=== PATIENT | female | born 1975 | race Hispanic/Latino ===

== ENCOUNTER 2018-10-07 16:06 | Emergency (ER) | payer OTHER ==
--- NOTE | 2018-10-07 16:46 | Emergency Department Report ---
Blank Doc - Documentation Documentation: 43 y/o female s/o fall in [place] and injured right ankle requiring surgi awilda fixation in June 24 and needs ortho referal, needs medication refills, also right ear pain for the last few days
[2018-10-07] MEDS ORDERED: IBUPROFEN PO ONE (20:20)
--- NOTE | 2018-10-07 20:47 | Emergency Department Report ---
ED General Adult HPI - General Chief complaint: Extremity Injury, Lower Stated complaint: LEGS/ANKLE/EAR ACHE Time Seen by Provider: 10/07/18 16:42 Source: patient Mode of arrival: Ambulatory Limitations: No Limitations - History of Present Illness Initial comments: This is a 43-year-old female presents with bilateral ankle pain for several months. Past medical history of diabetes type 2, dyslipidemia, and obstructive sleep apnea. Patient states she fell in her right ankle which required surgery. Patient states she was unable to follow-up post surgery and continues to feel increased pain to the lateral right ankle. Patient states she has been in [place] since last Monday. She is also complaining of right ear pain for the past 4 days. Patient states she is using deborox eardrops for wax removal with no improvement of symptoms. Patient states she does not have a primary care provider to follow-up with and requesting medication refills. Onset/Timin -: days(s) Location: face (right ear), right, lower extremity Radiation: non-radiation Severity scale (0 -10): 10 Quality: aching Consistency: intermittent Improves with: none Worsens with: movement, other (weightbearing) Associated Symptoms: denies other symptoms Treatments Prior to Arrival: NSAID - Related Data Previous Rx's Medication Instructions Recorded Last Taken Type Gabapentin [Neurontin] 300 mg PO Q8HR #90 capsule 10/07/18 Unknown Rx Glimepiride [Amaryl] 1 mg PO QAM #30 tablet 10/07/18 Unknown Rx Ketotifen Fumarate [Alaway] 10 ml OP BID #1 bottle 10/07/18 Unknown Rx Omeprazole 40 mg PO DAILY #30 capsule. 10/07/18 Unknown Rx buPROPion XL [Wellbutrin XL] 150 mg PO DAILY #30 tablet 10/07/18 Unknown Rx Allergies Allergy/AdvReac Type Severity Reaction Status Date / Time levofloxacin [From Levaquin] Allergy Anaphylaxis Verified 10/07/18 16:09 ED Review of Systems ROS: Stated complaint: LEGS/ANKLE/EAR ACHE Other details as noted in HPI Constitutional: denies: chills, fever ENT: ear pain (right) Respiratory: denies: cough, shortness of breath, wheezing Cardiovascular: denies: chest pain, palpitations Gastrointestinal: denies: abdominal pain, nausea, diarrhea Musculoskeletal: arthralgia (right ankle pain). denies: back pain, joint swelling Skin: denies: rash, lesions Neurological: denies: headache, weakness, paresthesias Psychiatric: denies: anxiety, depression ED Past Medical Hx - Social History Smoking Status: Current Every Day Smoker Substance Use Type: Alcohol - Medications Home Medications: Home Medications Medication Instructions Recorded Confirmed Last Taken Type Gabapentin [Neurontin] 300 mg PO Q8HR #90 capsule 10/07/18 Unknown Rx Glimepiride [Amaryl] 1 mg PO QAM #30 tablet 10/07/18 Unknown Rx Ketotifen Fumarate [Alaway] 10 ml OP BID #1 bottle 10/07/18 Unknown Rx Omeprazole 40 mg PO DAILY #30 capsule.dr 10/07/18 Unknown Rx buPROPion XL [Wellbutrin XL] 150 mg PO DAILY #30 tablet 10/07/18 Unknown Rx ED Physical Exam - General Limitations: No Limitations General appearance: alert, in no apparent distress, obese - ENT ENT exam: Present: mucous membranes moist, TM's normal bilaterally. Absent: normal external ear exam (erythematous right external ear canal, mild cerumen, de leon light reflex) - Neck Neck exam: Present: normal inspection - Respiratory Respiratory exam: Present: normal lung sounds bilaterally. Absent: respiratory distress - Cardiovascular Cardiovascular Exam: Present: regular rate, normal rhythm. Absent: systolic murmur, diastolic murmur, rubs, gallop - GI/Abdominal GI/Abdominal exam: Present: soft, normal bowel sounds. Absent: distended, tenderness, guarding, rebound, rigid, organomegaly, mass, bruit, pulsatile mass - Expanded Lower Extremity Exam Right Hip exam: Present: normal inspection, full ROM Upper Leg exam: Present: normal inspection, full ROM Knee exam: Present: normal inspection, full ROM Lower Leg exam: Present: normal inspection, full ROM Ankle exam: Present: full ROM, tenderness (tenderness over the lateral malleolus). Absent: abrasion, laceration, ecchymosis, deformity, crepidus, dislocation, erythema, anterior draw sign Foot/Toe exam: Present: normal inspection, full ROM Neuro vascular tendon exam: Present: no vascular compromise Gait: Positive: observed and limited by pain - Neurological Exam Neurological exam: Present: alert, oriented X3 - Psychiatric Psychiatric exam: Present: normal affect, normal mood - Skin Skin exam: Present: warm, dry, intact, normal color. Absent: rash ED Course Vital Signs 10/07/18 16:41 Temperature 98.2 F Pulse Rate 80 Respiratory 18 Rate Blood Pressure 131/82 O2 Sat by Pulse 95 Oximetry ED Medical Decision Making - Medical Decision Making Patient was examined by me. Vitals are normal and patient is in no acute distress. Patient had postsurgical boot to right lower extremity. There is tenderness over right lateral malleolus, full range of motion, no edema. Referral to orthopedic surgery for continued care. Past medical history of diabetes type 2, dyslipidemia, obstructive sleep apnea, fibromyalgia. Patient requested refills on medication. Refills bydurian, glimepride, omeprazole bupropion, and gabapentin. Referral to [facility] for continued care. Plan discussed with patient to discharge home and treat outpatient. She agrees with ER plan. Patient discharged home in stable condition. Follow up with PCP in 2-3 days. Critical care attestation.: If time is entered above; I have spent that time in minutes in the direct care of this critically ill patient, excluding procedure time. ED Disposition Clinical Impression: Right ear pain, Encounter for medication refill Right ankle pain Qualifiers: Chronicity: acute Qualified Code(s): M25.571 - Pain in right ankle and joints of right foot Otitis externa Qualifiers: Otitis externa type: swimmer's ear Chronicity: acute Laterality: right Qualified Code(s): H60.331 - Swimmer's ear, right ear Disposition: TO HOME OR SELFCARE Is pt being admited?: No Does the pt Need Aspirin: No Condition: Stable Instructions: Arthralgia (ED) Additional Instructions: Follow-up with orthopedic surgeon Dr. Vargas. Follow-up with the primary care provider is [facility] for [facility] for continued refills. Prescriptions: Ketotifen Fumarate [Alaway] 10 ml OP BID #1 bottle Glimepiride [Amaryl] 1 mg PO QAM #30 tablet Gabapentin [Neurontin] 300 mg PO Q8HR #90 capsule Omeprazole 40 mg PO DAILY #30 capsule. buPROPion XL [Wellbutrin XL] 150 mg PO DAILY #30 tablet Referrals: [facility] [Outside] - 3-5 Days [facility] [Outside] - 3-5 Days [facility] [Outside] - 3-5 Days Time of Disposition: 21:07
[2018-10-07 21:25] VITALS: BP 130/77
== END 2018-10-07 21:25 | disposition home or self-care (01) ==
LOC: ED 16:06
DX: M25.571 Pain in right ankle and joints of right foot (principal); M25.572 Pain in left ankle and joints of left foot; H60.331 Swimmer's ear, right ear; Z76.0 Encounter for issue of repeat prescription; F17.200 Nicotine dependence, unspecified, uncomplicated
CPT/HCPCS: 99282

== ENCOUNTER 2019-06-11 22:43 | Inpatient (IN) | payer OTHER ==
[2019-06-11] MEDS ORDERED: NALOXONE 2 MG/2 ML INJ ONE ×2 (22:47)
[2019-06-11] MEDS ORDERED: SODIUM CHLORIDE 0.9% 1000 ML 1,000 ML ONE ×2 (22:54→23:03)
[2019-06-11] MEDS ORDERED: NALOXONE 2 MG/2 ML INJ IV ONE (23:26)
[2019-06-11] MEDS ORDERED: SODIUM CHLORIDE 0.9% 1000 ML 1,000 ML IV ONE ×2 (23:27)
[2019-06-11] MEDS ORDERED: SUCCINYLCHOLINE CHLORIDE 200 MG/10 ML INJ MDV IV ONE (23:27)
[2019-06-11] MEDS ORDERED: ETOMIDATE 20 MG/10 ML INJ IV ONE (23:27)
--- NOTE | 2019-06-11 23:35 | Emergency Department Report ---
History of Present Illness - General Stated Complaint: POSS OVERDOSE Time Seen by Provider: 06/11/19 23:25 Source: EMS Mode of arrival: Stretcher Limitations: Altered Mental Status - History of Present Illness Initial Comments: 44-year-old female presents to ED via EMS for overdose. They state the , reported patient took pills approximately 45 minutes prior to arrival. Patient reportedly took approximately Zanaflex 4 mg, 25 tabs and Flexeril 10 mg, 25 tabs. Patient told EMS this was a suicide attempt because she had an argument with her . EMS reported patient is intermittently coherent. Requires some sternal rubbing to wake her. Complaint: intentional overdose -: minutes(s) (45) Intent: suicide attempt How Overdose Was Discovered: family/friend present Context: Intentional Overdose: relationship problems Associated Symptoms: lethargy Treatments Prior to Arrival: none - Related Data Previous Rx's Medication Instructions Recorded Last Taken Type Gabapentin 300 mg PO Q8HR #90 capsule 10/07/18 Unknown Rx Glimepiride [Amaryl] 1 mg PO QAM #30 tablet 10/07/18 Unknown Rx Ketotifen Fumarate [Alaway] 10 ml OP BID #1 bottle 10/07/18 Unknown Rx Omeprazole 40 mg PO DAILY #30 capsule. 10/07/18 Unknown Rx buPROPion XL [Wellbutrin XL] 150 mg PO DAILY #30 tablet 10/07/18 Unknown Rx Allergies Allergy/AdvReac Type Severity Reaction Status Date / Time levofloxacin [From Levaquin] Allergy Anaphylaxis Verified 10/07/18 16:09 ED Review of Systems ROS: Stated complaint: POSS OVERDOSE Other details as noted in HPI Comment: Unobtainable due to pts medical conditions ED Past Medical Hx - Social History Smoking Status: Current Every Day Smoker Substance Use Type: Alcohol - Medications Home Medications: Home Medications Medication Instructions Recorded Confirmed Last Taken Type Gabapentin 300 mg PO Q8HR #90 capsule 10/07/18 Unknown Rx Glimepiride [Amaryl] 1 mg PO QAM #30 tablet 10/07/18 Unknown Rx Ketotifen Fumarate [Alaway] 10 ml OP BID #1 bottle 10/07/18 Unknown Rx Omeprazole 40 mg PO DAILY #30 capsule. 10/07/18 Unknown Rx buPROPion XL [Wellbutrin XL] 150 mg PO DAILY #30 tablet 10/07/18 Unknown Rx ED Physical Exam - General General appearance: obtunded, obese - Head Head exam: Present: atraumatic, normocephalic - Eye Pupils: Present: other (pinpoint pupils bilaterally) - ENT ENT exam: Present: mucous membranes moist - Neck Neck exam: Present: normal inspection - Respiratory Respiratory exam: Present: normal lung sounds bilaterally, respiratory distress - Cardiovascular Cardiovascular Exam: Present: regular rate, normal rhythm - GI/Abdominal GI/Abdominal exam: Present: soft. Absent: distended, tenderness - Extremities Exam Extremities exam: Present: normal inspection - Neurological Exam Neurological exam: Present: altered - Skin Skin exam: Present: warm, dry, intact, normal color ED Course Vital Signs 06/11/19 06/11/19 06/12/19 22:43 23:29 00:00 Temperature 96.2 F L Pulse Rate 75 74 72 Respiratory 19 Rate Blood Pressure 78/34 96/61 Blood Pressure 71/35 [Right] O2 Sat by Pulse 99 98 98 Oximetry - Reevaluation(s) Reevaluation #1: 06/11/19 23:33 Upon arrival, pt w/ pinpoint pupils bilaterally. Narcan given, no change. Pt obtunded, not responsive to noxious stimuli. Decision made to intubate for airway protection. - Central Line Placement Right Femoral Consent Obtained: emergent situation Patient Placed on Monitor/Pulse Ox: Yes MD Prep: mask, gown, gloves Central Line Prep: Chlorhexidine scrub Ultrasound Used for Placement: No Central Line Lumen Inserted: triple Bloods Obtained for Lab: No Central Line Position: good blood return, all ports aspirated, flus, sutured in place with nyl Dressing Applied: Tegaderm Patient Tolerated Procedure: well Complications: none - Intubation Sedative: Etomidate Mg Given: 30 Paralytic: Succinylcholine Mg Given: 200 Laryngoscope: Tristan Size: 4 ET Tube Size: 7.5 Tube Secured Depth (cm): 20 Tube Secured Location: teeth Tube Placement Confirmation: visualized tube passing t, equal breath sounds bilat, no breath sounds over epi, confirmation by capnometr Patient Tolerated Procedure: well Intubation Complications: none ED Medical Decision Making - Lab Data Result diagrams: 06/11/19 23:36 06/11/19 23:36 - EKG Data -: EKG Interpreted by Tx EKG shows normal: sinus rhythm, axis, intervals, QRS complexes Rate: normal - EKG Data Interpretation: no acute changes, nonspecific ST-T wave sara - Radiology Data Radiology results: report reviewed, image reviewed - Medical Decision Making 44-year-old female who presents to ED slowly attempted overdose by taking Zanaflex and Flexeril, approximately 50 pills total. Upon arrival patient found to be hypotensive. Poison control was called and they recommended that we mon itor pt for [employer] depression, seizure, bradycardia, hypotension. Poison control advised not to give charcoal. Patient unresponsive upon EMS arrival. Patient was intubated for airway protection. A right femoral central line was placed. The patient did not respond adequately to 2 L bolus of fluids, so Levophed was initiated. Alcohol level is 128, drug screen is positive for amphetamines. CT head is negative. Patient opens her eyes when you call her name, but is still quite sedated. She does not currently have propofol running, but it is ordered in case she becomes agitated. Will admit pt to hospitalist for further management. - Differential Diagnosis overdose Critical Care Time: Yes Critical care time in (mins) excluding proc time.: 35 Critical care attestation.: If time is entered above; I have spent that time in minutes in the direct care of this critically ill patient, excluding procedure time. Critical Care Time: 35 minutes ED Disposition Clinical Impression: Intentional overdose of drug in tablet form, Acute respiratory failure, Hypotension Disposition: 09 OP ADMIT IP TO THIS HOSP Is pt being admited?: Yes Condition: Stable Time of Disposition: 03:24
[2019-06-11] MEDS ORDERED: NORepinephrine/NS 4 MG-250 ML 4 MG/250 ML BAG IV ONE (23:50)
[2019-06-11] MEDS ORDERED: NORepinephrine/NS 4 MG-250 ML 4 MG/250 ML BAG IV SCH (23:50)
--- NOTE | 2019-06-11 23:53 | XRay Report ---
CHEST 1 VIEW 06/11/2019 11:08 PM INDICATION / CLINICAL INFORMATION: post-intubation. COMPARISON: None available. FINDINGS: SUPPORT DEVICES: The tip of an ET tube is located 3.7 cm above the momo. HEART / MEDIASTINUM: No significant abnormality. LUNGS / PLEURA: There are generalized bilateral interstitial opacities. No significant pleural effusi on. No pneumothorax. ADDITIONAL FINDINGS: No significant additional findings. IMPRESSION: 1. Bilateral pulmonary opacities may represent atelectasis/edema. 2. ET tube as above. Signer Name: Michael Yin MD Signed: 06/11/2019 11:49 PM Workstation Name: [id number]
[2019-06-12] LABS: Basophils # (Auto) 0.1 K/mm3 (0.0-0.1); Basophils % (Auto) 0.8 % (0.0-1.8); Eosinophils # (Auto) 0.2 K/mm3 (0.0-0.4); Eosinophils % (Auto) 2.2 % (0.0-4.3); Hematocrit 32.2 % (30.3-42.9); Lymphocytes # (Auto) 3.3 K/mm3 (1.2-5.4); Mean Corpuscular HGB Conc 34 % (30-34); Mean Corpuscular Volume 88 fl (79-97); Monocytes # (Auto) 0.5 K/mm3 (0.0-0.8); Monocytes % (Auto) 7.6 % (0.0-7.3); Platelet Count 259 K/mm3 (140-440); Red Blood Count 3.68 M/mm3 (3.65-5.03); Red Cell Distribution Width 13.7 % (13.2-15.2)
[2019-06-12 00:15] LABS: Calcium 7.9 mg/dL (8.4-10.2)
[2019-06-12 00:17] LABS: Alanine Aminotransferase 13 units/L (7-56); Albumin 3.5 g/dL (3.9-5)
[2019-06-12] MEDS ORDERED: SUCCINYLCHOLINE CHLORIDE 200 MG/10 ML INJ MDV ONE (00:24)
[2019-06-12] MEDS ORDERED: ETOMIDATE 20 MG/10 ML INJ IV ONE (00:24)
[2019-06-12] MEDS ORDERED: ROCURONIUM 50 MG/5 ML INJ IV ONE ×2 (00:24→00:42)
[2019-06-12 00:33] LABS: Bilirubin,Direct < 0.2 mg/dL (0-0.2)
[2019-06-12 00:56] LABS: Bilirubin,Urine NEG (Negative); Blood,Urine NEG (Negative); Color,Urine Yellow (Yellow); Mucus,Urine FEW /HPF; Protein,Urine <15 mg/dL mg/dL (Negative); Urobilinogen,Urine < 2.0 mg/dL (<2.0)
[2019-06-12 01:00] LABS: HCG Qualitative,Urine Negative (Negative)
[2019-06-12 01:02] LABS: Benzodiazepines Screen,Urine PRESUMPTIVE NEGATIVE; Cannabinoid Screen,Urine PRESUMPTIVE NEGATIVE; Cocaine Screen,Urine PRESUMPTIVE NEGATIVE; Methadone Screen,Urine PRESUMPTIVE NEGATIVE; Opiate Screen,Urine PRESUMPTIVE NEGATIVE
--- NOTE | 2019-06-12 01:17 | Cat Scan Report ---
CT HEAD WITHOUT CONTRAST INDICATION : Altered mental status. TECHNIQUE: Axial, coronal and sagittal CT imaging was performed from the skull apex through the skul l base without contrast. All CT scans at this location are performed using CT dose reduction for ALA RA by means of automated exposure control. COMPARISON: None available. FINDINGS: PARENCHYMA: No mass, midline shift, hemorrhage, extraaxial collection or acute territorial infarctio n. VENTRICLES: Symmetric and normal in size. SOFT TISSUES: Soft tissues including the orbits appear normal. BONES: No acute osseous abnormality. SINUSES: No significant abnormality. ADDITIONAL FINDINGS: None. IMPRESSION: No acute intracranial abnormality. Signer Name: Michael Yin MD Signed: 06/12/2019 1:12 AM Workstation Name: [id number]
[2019-06-12 01:30] LABS: Amphetamine Screen,Urine PRESUMPTIVE POSITIVE
[2019-06-12] MEDS ORDERED: PROPOFOL 1,000 MG/100 ML BOTTLE IV SCH (03:00)
[2019-06-12] MEDS ORDERED: SODIUM CHLORIDE 0.9% 1000 ML 1,000 ML IV SCH (03:45)
--- NOTE | 2019-06-12 05:17 | History and Physical Report ---
History of Present Illness Date of examination: 06/12/19 Date of admission: 06/12/19 Chief complaint: Drug overdose History of present illness: 44-year-old female seen in the emergency room today after taking an overdose of Zanaflex and Flexeril-approximately Zanaflex 4 mg, 25 tabs and Flexeril 10 mg, 25 tabs. . She was said to have had an argument with with her and definitely intentionally took her over dose of the above medications in an attempt to commit suicide. Upon arrival in the emergency room she was found to be hypotensive, confused , drowsy and went into respiratory failure. Patient was subsequently intubated and sedated. History could not be gotten from patient as she is intubated and there were no family members available. Medications and Allergies Allergies Allergy/AdvReac Type Severity Reaction Status Date / Time levofloxacin [From Levaquin] Allergy Anaphylaxis Verified 10/07/18 16:09 Home Medications Medication Instructions Recorded Confirmed Last Taken Type Gabapentin 300 mg PO Q8HR #90 capsule 10/07/18 Unknown Rx Glimepiride [Amaryl] 1 mg PO QAM #30 tablet 10/07/18 Unknown Rx Ketotifen Fumarate [Alaway] 10 ml OP BID #1 bottle 10/07/18 Unknown Rx Omeprazole 40 mg PO DAILY #30 capsule. 10/07/18 Unknown Rx buPROPion XL [Wellbutrin XL] 150 mg PO DAILY #30 tablet 10/07/18 Unknown Rx Active Meds: Active Medications Norepinephrine (Levophed Drip 4 Mg/Ns 250 Ml) 4 mg in 250 mls @ 7.5 mls/hr IV TITR LATRICE; Protocol Last Titration: 06/12/19 00:15 Dose: 4 mcg/min, 15 mls/hr Documented by: Propofol (Diprivan 10 Mg/Ml) 1,000 mg in 100 mls @ 2.926 mls/hr IV TITR LATRICE; Protocol Last Admin: 06/12/19 04:45 Dose: 5 mcg/kg/min, 2.926 mls/hr Documented by: Sodium Chloride (Nacl 0.9% 1000 Ml) 1,000 mls @ 125 mls/hr IV DIRECT LATRICE Morphine Sulfate (Morphine) 2 mg IV Q4H PRN PRN Reason: Pain, Moderate (4-6) Sodium Chloride (Sodium Chloride Flush Syringe 10 Ml) 10 ml IV BID LATRICE Sodium Chloride (Sodium Chloride Flush Syringe 10 Ml) 10 ml IV PRN PRN PRN Reason: LINE FLUSH Review of Systems ROS unobtainable: due to endotracheal tube Exam - Constitutional Vitals: Temp Pulse Resp BP Pulse Ox 96.2 F L 87 19 110/64 94 06/11/19 22:43 06/12/19 04:30 06/11/19 22:43 06/12/19 04:30 06/12/19 04:30 General appearance: Present: no acute distress, well-nourished, obese - EENT Eyes: Present: PERRL, EOM intact ENT: hearing intact, other (Intubated) - Neck Neck: Present: supple, normal ROM - Respiratory Respiratory: bilateral: CTA - Cardiovascular Rhythm: regular Heart Sounds: Present: S1 & S2 - Extremities Extremities: no ischemia, pulses intact, pulses symmetrical, No edema Peripheral Pulses: within normal limits - Abdominal General gastrointestinal: Present: soft, non-tender, non-distended - Integumentary Integumentary: Present: clear, warm, dry - Musculoskeletal Musculoskeletal: strength equal bilaterally - Neurologic Neurologic: other (Intubated and sedated) Results - Labs CBC & Chem 7: 06/11/19 23:36 06/11/19 23:36 Labs: Abnormal lab results 06/11/19 06/11/19 06/11/19 Range/Units 23:36 23:36 23:36 Lymph % (Auto) 46.0 H (13.4-35.0) % [place] % (Auto) 7.6 H (0.0-7.3) % POC ABG pH (7.35-7.45) POC ABG pO2 (80-105) Carbon Dioxide 19 L (22-30) mmol/L BUN 23 H (7-17) mg/dL Glucose 278 H (65-100) mg/dL Calcium 7.9 L (8.4-10.2) mg/dL Total Protein 5.5 L (6.3-8.2) g/dL Albumin 3.5 L (3.9-5) g/dL Salicylates (2.8-20.0) mg/dL Acetaminophen (10.0-30.0) ug/mL Plasma/Serum Alcohol (0-0.07) % 06/11/19 06/11/19 06/11/19 Range/Units 23:36 23:36 23:36 Lymph % (Auto) (13.4-35.0) % [place] % (Auto) (0.0-7.3) % POC ABG pH (7.35-7.45) POC ABG pO2 (80-105) Carbon Dioxide (22-30) mmol/L BUN (7-17) mg/dL Glucose (65-100) mg/dL Calcium (8.4-10.2) mg/dL Total Protein (6.3-8.2) g/dL Albumin (3.9-5) g/dL Salicylates < 0.3 L (2.8-20.0) mg/dL Acetaminophen < 5.0 L (10.0-30.0) ug/mL Plasma/Serum Alcohol 0.12 H (0-0.07) % 06/12/19 06/12/19 Range/Units 00:00 05:09 Lymph % (Auto) (13.4-35.0) % [place] % (Auto) (0.0-7.3) % POC ABG pH 7.273 L (7.35-7.45) POC ABG pO2 141 H 66 L (80-105) Carbon Dioxide (22-30) mmol/L BUN (7-17) mg/dL Glucose (65-100) mg/dL Calcium (8.4-10.2) mg/dL Total Protein (6.3-8.2) g/dL Albumin (3.9-5) g/dL Salicylates (2.8-20.0) mg/dL Acetaminophen (10.0-30.0) ug/mL Plasma/Serum Alcohol (0-0.07) % Assessment and Plan - Patient Problems (1) Acute respiratory failure Current Visit: Yes Status: Acute Plan to address problem: Patient has been intubated and will be admitted to the intensive care unit . (2) Hypotension Current Visit: Yes Status: Acute Plan to address problem: Probably secondary to drug overdose. Patient has been placed on IV fluid (3) Intentional overdose of drug in tablet form Current Visit: Yes Status: Acute Plan to address problem: She will be closely monitored. Poison control has been notified. Recommendation is to monitor patient closely. (4) DVT prophylaxis Current Visit: Yes Status: Acute Plan to address problem: Placed on subcutaneous heparin. (5) Full code status Current Visit: Yes Status: Acute
[2019-06-12] MEDS ORDERED: HEPARIN 5,000 UNIT/1 ML VIAL ONE (08:51)
[2019-06-12] MEDS: HEPARIN 5,000 UNIT/1 ML VIAL SUB-Q SCH ×4 (08:51→23:43)
--- NOTE | 2019-06-12 09:14 | Consultation ---
History of Present Illness Consult date: 06/12/19 Requesting physician: CARLOS LUNA History of present illness: 44-year-old female seen in the emergency room today after taking an overdose of Zanaflex and Flexeril-approximately Zanaflex 4 mg, 25 tabs and Flexeril 10 mg, 25 tabs. . She was said to have had an argument with with her and definitely intentionally took her over dose of the above medications in an attempt to commit suicide. Upon arrival in the emergency room she was found to be hypotensive, confused , drowsy and went into respiratory failure. Patient was subsequently intubated and sedated and admitted to the ICU I have been consulted for critical care management. Patient was seen and examined. Vitals, labs, medications, chart and imaging reviewed. She is orally intubated, awake and alert. She is on propofol and norepinephrine infusions Medications and Allergies Allergies Allergy/AdvReac Type Severity Reaction Status Date / Time levofloxacin [From Levaquin] Allergy Anaphylaxis Verified 10/07/18 16:09 Home Medications Medication Instructions Recorded Confirmed Last Taken Type Ketotifen Fumarate [Alaway] 10 ml OP BID #1 bottle 10/07/18 06/12/19 Unknown Rx Omeprazole 40 mg PO DAILY #30 capsule.dr 10/07/18 06/12/19 Unknown Rx Glimepiride [Amaryl] 5 mg PO QAM 06/12/19 06/12/19 Unknown History buPROPion XL [Wellbutrin XL] 150 mg PO TID 06/12/19 06/12/19 Unknown History Active Meds: Active Medications Famotidine (Pepcid) 20 mg IV BID [facility] Heparin Sodium (Porcine) (Heparin) 5,000 unit SUB-Q Q8HR [facility] Last Admin: 06/12/19 08:51 Dose: 5,000 unit Documented by: Norepinephrine (Levophed Drip 4 Mg/Ns 250 Ml) 4 mg in 250 mls @ 7.5 mls/hr IV TITR [facility]; Protocol Last Titration: 06/12/19 08:40 Dose: 4 mcg/min, 15 mls/hr Documented by: Propofol (Diprivan 10 Mg/Ml) 1,000 mg in 100 mls @ 2.926 mls/hr IV TITR [facility]; Protocol Last Titration: 06/12/19 07:20 Dose: 15 mcg/kg/min, 8.777 mls/hr Documented by: Sodium Chloride (Nacl 0.9% 1000 Ml) 1,000 mls @ 125 mls/hr IV DIRECT [facility] Morphine Sulfate (Morphine) 2 mg IV Q4H PRN PRN Reason: Pain, Moderate (4-6) Sodium Chloride (Sodium Chloride Flush Syringe 10 Ml) 10 ml IV BID [facility] Sodium Chloride (Sodium Chloride Flush Syringe 10 Ml) 10 ml IV PRN PRN PRN Reason: LINE FLUSH Review of Systems ROS unobtainable: due to endotracheal tube Physical Examination Vital signs: Vital Signs Temp Pulse Resp BP Pulse Ox 96.2 F L 75 19 71/35 99 06/11/19 22:43 06/11/19 22:43 06/11/19 22:43 06/11/19 22:43 06/11/19 22:43 Constitutional: lethargic, other (obese woman normocephalic with mildly increased respiratory-effort on MVS) Eyes: non-icteric ENT: oropharynx moist, other (ETT 23 cm CORNELIO) Neck: supple, no lymphadenopathy, no JVD Effort: mildly labored Ascultation: Bilateral: rhonchi Percussion: Bilateral: not dull Cardiovascular: regular rate and rhythm Gastrointestinal: normoactive bowel sounds, soft, non-tender, non-distended Integumentary: normal Extremities: no cyanosis, no edema, no ischemia or petechiae Neurologic: non-focal exam (grossly), pupils equal and round, awake,alert Psychiatric:anxious General appearance: no acute distress, other Results - Laboratory Findings CBC and BMP: 06/13/19 06:49 06/13/19 06:49 ABG POC ABG pH 7.368 (7.35-7.45) 06/12/19 05:09 POC ABG pCO2 41.0 (35-45) 06/12/19 05:09 POC ABG pO2 66 (80-105) L 06/12/19 05:09 POC ABG HCO3 23.6 (22-26 mml/L) 06/12/19 05:09 POC ABG Total CO2 25 (23-27mmol/L) 06/12/19 05:09 POC ABG O2 Sat 92 06/12/19 05:09 Abnormal lab findings: Abnormal Labs 06/11/19 06/11/19 06/11/19 23:36 23:36 23:36 Lymph % (Auto) 46.0 H [place] % (Auto) 7.6 H POC ABG pH POC ABG pO2 Carbon Dioxide 19 L BUN 23 H Glucose 278 H Calcium 7.9 L Total Protein 5.5 L Albumin 3.5 L Salicylates Acetaminophen Plasma/Serum Alcohol 06/11/19 06/11/19 06/11/19 23:36 23:36 23:36 Lymph % (Auto) [place] % (Auto) POC ABG pH POC ABG pO2 Carbon Dioxide BUN Glucose Calcium Total Protein Albumin Salicylates < 0.3 L Acetaminophen < 5.0 L Plasma/Serum Alcohol 0.12 H 06/12/19 06/12/19 00:00 05:09 Lymph % (Auto) [place] % (Auto) POC ABG pH 7.273 L POC ABG pO2 141 H 66 L Carbon Dioxide BUN Glucose Calcium Total Protein Albumin Salicylates Acetaminophen Plasma/Serum Alcohol Assessment and Plan -Acute hypoxic respiratory failure on MVS -Intentional OD -Hypotension at presentation, now hypertensive -Obese -Place on PSV, if tolerated plan to liberate from MVS -Stop vasopressors -Needs a Psych evalaution on extubation -VAP bundle addressed -Disconitue alvarado catheter -Once extubated place on a 1013 -Blood pressure managmeent -PT/OT to evalaute and treat -VTE prophylaxxis -Stress ulcer prophylaxis while on MVS -prn ABG,CXR -CBC, BMP in the morning CONDITION: FAIR PROGNOSIS: FAIR CODE STATUS: FULL CODE Discussed with care team in ICU-IDT rounds Discussed with primary service Once extubated, can transfer out of the ICU, later this afternoon
[2019-06-12] MEDS: ACETAMINOPHEN 325 MG TAB PO PRN ×2 (13:52→23:00)
[2019-06-12] MEDS: FAMOTIDINE 20 MG/2 ML INJ IV SCH ×3 (14:19→23:44)
[2019-06-12] MEDS: MORPHINE 2 MG/1 ML INJ IV PRN (20:04)
[2019-06-13] MEDS: MORPHINE 2 MG/1 ML INJ IV PRN ×3 (01:05→11:53)
[2019-06-13] MEDS: HEPARIN 5,000 UNIT/1 ML VIAL SUB-Q SCH ×2 (06:12→15:00)
--- NOTE | 2019-06-13 06:46 | Event Note ---
Date: 06/12/19 44-year-old female seen in the emergency room today after taking an overdose of Zanaflex and Flexeril-approximately Zanaflex 4 mg, 25 tabs and Flexeril 10 mg, 25 tabs. . She was said to have had an argument with with her and definitely intentionally took her over dose of the above medications in an attempt to commit suicide. Upon arrival in the emergency room she was found to be hypotensive, confused , drowsy and went into respiratory failure. Patient was subsequently intubated and sedated and admitted to the ICU I have been consulted fro critical care managment. Patient was seen and examined. Vitals, labs, medications, chart and imaging reviewed. She is orally intubated, awake and alert. Extubated and transferred to Med surg --Patient is stable 1013 initiated consult requested
[2019-06-13 07:36] LABS: Basophils % (Auto) 0.6 % (0.0-1.8); Eosinophils # (Auto) 0.2 K/mm3 (0.0-0.4); Eosinophils % (Auto) 2.8 % (0.0-4.3); Hematocrit 35.2 % (30.3-42.9); Lymphocytes # (Auto) 2.6 K/mm3 (1.2-5.4); Lymphocytes % (Auto) 43.1 % (13.4-35.0); Mean Corpuscular HGB Conc 34 % (30-34); Mean Corpuscular Volume 87 fl (79-97); Monocytes # (Auto) 0.4 K/mm3 (0.0-0.8); Monocytes % (Auto) 7.2 % (0.0-7.3); Platelet Count 203 K/mm3 (140-440); Red Blood Count 4.06 M/mm3 (3.65-5.03); Red Cell Distribution Width 13.7 % (13.2-15.2)
[2019-06-13 07:47] LABS: INR 1.09 (0.87-1.13)
[2019-06-13 07:48] LABS: Partial Thromboplastin Time 30.7 Sec. (24.2-36.6)
[2019-06-13 07:57] LABS: BUN/Creatinine Ratio 28; Blood Urea Nitrogen 11 mg/dL (7-17); Calcium 8.6 mg/dL (8.4-10.2); Hemolysis Index 6
--- NOTE | 2019-06-13 09:57 | Consultation ---
History of Present Illness - Reason for Consult Consult date: 06/13/19 Reason for consult: Suicide attempt - Chief Complaint Chief complaint: Drug overdose - History of Present Psychiatric Illness The patient is a 44yo , disabled female with self-reported history of Borderline Personality Disorder and PTSD. She was admitted to [facility] after she overdosed on medications. Psychiatry consulted to determine intent of overdose and to recommend disposition. Patient seen by me. She is alert, fully oriented, calm and pleasant. She admits to overdosing on her prescribed medications - she states "I took a lot of pills because I was overwhelmed" She felt suicidal at the time of the overdose but denies being suicidal at present time. She reports impulsively taking the overdose as a reaction to the stress of leaving with her in-laws. Per patient, she and her relocated from [place] to [place] just over 2 weeks ago and are s taying with her 's family. She feels stupid about the overdose and regrets her action. She feels safe going home and plans to establish out-patient care with a local psychiatrist here in [place]. Today, she describes a good and stable mood, denies being depressed or excessively nervous. Patient eats and sleeps well. Patient denies panic attacks, recurrent nightmares or flashbacks. Patient denies symptoms suggestive of OCD or PTSD. Patient denies hallucinations, paranoia, thought interference and no features suggestive of hypomania or sury. She completely denies suicidal or homicidal thoughts. PAST PSYCHIATRIC HISTORY: Diagnoses: Borderline Personality Disorder and PTSD Suicide attempts or Self-harm behavior: 3 previous suicide attempts Prior psychiatric hospitalizations: Yes, 5 times Substance Abuse history: Patient denies Previous psychiatric medications tried: Cymbalta and Wellbutrin Outpatient treatment: Yes, in [place] PAST MEDICAL HISTORY: As documented by the hospitalist Family Psychiatric History None reported or documented SOCIAL HISTORY Marital Status: Living Arrangements: with in-laws Employment Status: disabled Access to guns/weapons: patient denies Education: some college History of Abuse: Patient denies Legal History: Patient denies REVIEW OF SYSTEMS Constitutional: Negative for weight loss ENT: Negative for stridor Respiratory: Negative for cough or hemoptysis All other systems reviewed and are negative MENTAL STATUS EXAMINATION General Appearance and Behavior: age appropriate, good eye contact, cooperative with questioning and polite Cooperation: Cooperative Psychomotor Behavior: within normal limits Mood: Good Affect and affective range: Congruent with stated mood Thought Process: Fluent/Logical and Goal-directed Thought Content: Within reality Speech: Normal volume and Regular rate and rhythm Intellectual Functioning Average Suicidal Ideation: Denies SI Homicidal Ideation: Denies HI Impulse Control: intact Insight and Judgment: normal insight and judgment Memory: Normal Attention: Normal Orientation: alert and oriented DIAGNOSES Adjustment disorder with mixed disturbance of emotions and conduct Borderline personality disorder PTSD by history RECOMMENDATIONS MEDICATIONS: No medication adjustment recommended Risks, benefits and alternatives of medications discussed with the patient, questions answered and consent obtained from patient. PSYCHOTHERAPY: Supportive psychotherapy provided MEDICAL: Per primary team DIRECTORY CARRIER: May discontinue DISPOSITION: Per primary team; no indication for acute inpatient psychiatric hospitalization at this time LEGAL STATUS: 1013 rescinded FOLLOW-UP: Will sign off. Please provide Out-patient Resources The patient agreed on the treatment plan, understood the risk, benefit, [place] treatment, potential consequence of no treatment, and gave informed consent. I have reviewed this treatment plan, including potential risks and benefits of medications, with the patient and/or family members and relevant hospital providers. Please contact with any questions and/or concerns. Medications and Allergies Allergies Allergy/AdvReac Type Severity Reaction Status Date / Time levofloxacin [From Levaquin] Allergy Anaphylaxis Verified 10/07/18 16:09 Home Medications Medication Instructions Recorded Confirmed Last Taken Type Ketotifen Fumarate [Alaway] 10 ml OP BID #1 bottle 10/07/18 06/12/19 Unknown Rx Omeprazole 40 mg PO DAILY #30 capsule. 10/07/18 06/12/19 Unknown Rx Glimepiride [Amaryl] 5 mg PO QAM 06/12/19 06/12/19 Unknown History buPROPion XL [Wellbutrin XL] 150 mg PO TID 06/12/19 06/12/19 Unknown History Active Meds: Active Medications Acetaminophen (Tylenol) 650 mg PO Q4H PRN PRN Reason: Pain, Mild (1-3) Last Admin: 06/12/19 23:00 Dose: 650 mg Documented by: Famotidine (Pepcid) 20 mg IV BID [facility] Last Admin: 06/12/19 23:44 Dose: Not Given Documented by: Heparin Sodium (Porcine) (Heparin) 5,000 unit SUB-Q Q8HR [facility] Last Admin: 06/13/19 06:12 Dose: 5,000 unit Documented by: Morphine Sulfate (Morphine) 2 mg IV Q4H PRN PRN Reason: Pain, Moderate (4-6) Last Admin: 06/13/19 06:12 Dose: 2 mg Documented by: Sodium Chloride (Sodium Chloride Flush Syringe 10 Ml) 10 ml IV BID [facility] Last Admin: 06/12/19 23:44 Dose: Not Given Documented by: Sodium Chloride (Sodium Chloride Flush Syringe 10 Ml) 10 ml IV PRN PRN PRN Reason: LINE FLUSH Mental Status Exam - Vital signs Last Vital Signs Temp 98.7 F 06/13/19 08:48 Pulse 79 06/13/19 08:48 Resp 24 06/13/19 08:48 BP 97/66 06/13/19 08:48 Pulse Ox 97 06/13/19 08:48 Results Result Diagrams: 06/13/19 06:49 06/13/19 06:49 Abnormal lab results 06/13/19 06/13/19 Range/Units 06:49 06:49 Lymph % (Auto) 43.1 H (13.4-35.0) % Sodium 136 L (137-145) mmol/L Creatinine 0.4 L D (0.7-1.2) mg/dL Glucose 150 H (65-100) mg/dL All other labs normal.
[2019-06-13] MEDS: FAMOTIDINE 20 MG/2 ML INJ IV SCH (11:02)
--- NOTE | 2019-06-13 11:45 | Progress Note ---
Assessment and Plan Assessment and plan: Suicide attempt. Await psychiatric consultation. Intentional drug overdose. As above. Patient reportedly took Zanaflex and Flexeril-approximately Zanaflex 4 mg, 25 tabs and Flexeril 10 mg, 25 tabs. Acute hypoxic respiratory failure. Resolved. History Interval history: 44-year-old female seen in the emergency room today after taking an overdose of Zanaflex and Flexeril-approximately Zanaflex 4 mg, 25 tabs and Flexeril 10 mg, 25 tabs. . She was said to have had an argument with with her and definitely intentionally took her over dose of the above medications in an attempt to commit suicide. Hospitalist Physical - Constitutional Vitals: Temp Pulse Resp BP Pulse Ox 98.7 F 79 24 97/66 94 06/13/19 08:48 06/13/19 08:48 06/13/19 08:48 06/13/19 08:48 06/13/19 10:00 General appearance: Present: no acute distress, well-nourished, obese - EENT Eyes: Present: PERRL, EOM intact ENT: hearing intact, clear oral mucosa, dentition normal - Neck Neck: Present: supple, normal ROM - Respiratory Respiratory effort: normal Respiratory: bilateral: CTA - Cardiovascular Rhythm: regular Heart Sounds: Present: S1 & S2. Absent: gallop, rub - Extremities Extremities: no ischemia, No edema, Full ROM - Abdominal General gastrointestinal: soft, non-tender, non-distended, normal bowel sounds - Integumentary Integumentary: Present: clear, warm, dry - Neurologic Neurologic: CNII-XII intact, moves all extremities Results - Labs CBC & Chem 7: 06/13/19 06:49 06/13/19 06:49 Labs: Laboratory Last Values WBC 6.1 K/mm3 (4.5-11.0) 06/13/19 06:49 RBC 4.06 M/mm3 (3.65-5.03) 06/13/19 06:49 Hgb 12.0 gm/dl (10.1-14.3) 06/13/19 06:49 Hct 35.2 % (30.3-42.9) 06/13/19 06:49 MCV 87 fl (79-97) 06/13/19 06:49 MCH 30 pg (28-32) 06/13/19 06:49 MCHC 34 % (30-34) 06/13/19 06:49 RDW 13.7 % (13.2-15.2) 06/13/19 06:49 Plt Count 203 K/mm3 (140-440) 06/13/19 06:49 Lymph % (Auto) 43.1 % (13.4-35.0) H 06/13/19 06:49 [place] % (Auto) 7.2 % (0.0-7.3) 06/13/19 06:49 Eos % (Auto) 2.8 % (0.0-4.3) 06/13/19 06:49 Baso % (Auto) 0.6 % (0.0-1.8) 06/13/19 06:49 Lymph # 2.6 K/mm3 (1.2-5.4) 06/13/19 06:49 [place] # 0.4 K/mm3 (0.0-0.8) 06/13/19 06:49 Eos # 0.2 K/mm3 (0.0-0.4) 06/13/19 06:49 Baso # 0.0 K/mm3 (0.0-0.1) 06/13/19 06:49 Seg Neutrophils % 46.3 % (40.0-70.0) 06/13/19 06:49 Seg Neutrophils # 2.8 K/mm3 (1.8-7.7) 06/13/19 06:49 PT 14.2 Sec. (12.2-14.9) 06/13/19 06:49 INR 1.09 (0.87-1.13) 06/13/19 06:49 APTT 30.7 Sec. (24.2-36.6) 06/13/19 06:49 POC ABG pH 7.368 (7.35-7.45) 06/12/19 05:09 POC ABG pCO2 41.0 (35-45) 06/12/19 05:09 POC ABG pO2 66 (80-105) L 06/12/19 05:09 POC ABG HCO3 23.6 (22-26 mml/L) 06/12/19 05:09 POC ABG Total CO2 25 (23-27mmol/L) 06/12/19 05:09 POC ABG O2 Sat 92 06/12/19 05:09 POC ABG Base Excess -2 ((-2) - (+3)mmol/L) 06/12/19 05:09 FiO2 45 % 06/12/19 05:09 Sodium 136 mmol/L (137-145) L 06/13/19 06:49 Potassium 3.9 mmol/L (3.6-5.0) 06/13/19 06:49 Chloride 99.9 mmol/L (98-107) 06/13/19 06:49 Carbon Dioxide 24 mmol/L (22-30) 06/13/19 06:49 Anion Gap 16 mmol/L 06/13/19 06:49 BUN 11 mg/dL (7-17) 06/13/19 06:49 Creatinine 0.4 mg/dL (0.7-1.2) L D 06/13/19 06:49 Estimated GFR > 60 ml/min 06/13/19 06:49 BUN/Creatinine Ratio 28 % 06/13/19 06:49 Glucose 150 mg/dL (65-100) H 06/13/19 06:49 Calcium 8.6 mg/dL (8.4-10.2) 06/13/19 06:49 Total Bilirubin < 0.20 mg/dL (0.1-1.2) 06/11/19 23:36 Direct Bilirubin < 0.2 mg/dL (0-0.2) 06/11/19 23:36 Indirect Bilirubin 0.0 mg/dL 06/11/19 23:36 AST 16 units/L (5-40) 06/11/19 23:36 ALT 13 units/L (7-56) 06/11/19 23:36 Alkaline Phosphatase 72 units/L (35-129) 06/11/19 23:36 Troponin T < 0.010 ng/mL (0.00-0.029) 06/11/19 23:36 Total Protein 5.5 g/dL (6.3-8.2) L 06/11/19 23:36 Albumin 3.5 g/dL (3.9-5) L 06/11/19 23:36 Albumin/Globulin Ratio 1.8 % 06/11/19 23:36 Urine Color Yellow (Yellow) 06/12/19 00:34 Urine Turbidity Slightly-cloudy (Clear) 06/12/19 00:34 Urine pH 5.0 (5.0-7.0) 06/12/19 00:34 Ur Specific [place] 1.014 (1.003-1.030) 06/12/19 00:34 Urine Protein <15 mg/dl mg/dL (Negative) 06/12/19 00:34 Urine Glucose (UA) Neg mg/dL (Negative) 06/12/19 00:34 Urine Ketones Neg mg/dL (Negative) 06/12/19 00:34 Urine Blood Neg (Negative) 06/12/19 00:34 Urine Nitrite Neg (Negative) 06/12/19 00:34 Urine Bilirubin Neg (Negative) 06/12/19 00:34 Urine Urobilinogen < 2.0 mg/dL (<2.0) 06/12/19 00:34 Ur Leukocyte Esterase Tr (Negative) 06/12/19 00:34 Urine WBC (Auto) 2.0 /HPF (0.0-6.0) 06/12/19 00:34 Urine RBC (Auto) 1.0 /HPF (0.0-6.0) 06/12/19 00:34 U Epithel Cells (Auto) 4.0 /HPF (0-13.0) 06/12/19 00:34 Urine Mucus Few /HPF 06/12/19 00:34 Urine HCG, Qual Negative (Negative) 06/12/19 00:34 Salicylates < 0.3 mg/dL (2.8-20.0) L 06/11/19 23:36 Urine Opiates Screen Presumptive negative 06/12/19 00:34 Urine Methadone Screen Presumptive negative 06/12/19 00:34 Acetaminophen < 5.0 ug/mL (10.0-30.0) L 06/11/19 23:36 Ur Barbiturates Screen Presumptive negative 06/12/19 00:34 Ur Phencyclidine Scrn Presumptive negative 06/12/19 00:34 Ur Amphetamines Screen Presumptive positive 06/12/19 00:34 U Benzodiazepines Scrn Presumptive negative 06/12/19 00:34 Urine Cocaine Screen Presumptive negative 06/12/19 00:34 U Marijuana (THC) Screen Presumptive negative 06/12/19 00:34 Drugs of Abuse Note Disclamer 06/12/19 00:34 Plasma/Serum Alcohol 0.12 % (0-0.07) H 06/11/19 23:36 Active Medications - Current Medications Current Medications: Generic Name Dose Route Start Last Admin Trade Name Freq PRN Reason Stop Dose Admin Acetaminophen 650 mg 06/12/19 12:58 06/12/19 23:00 Tylenol PO 650 mg Q4H PRN Administration Pain, Mild (1-3) Famotidine 20 mg 06/12/19 10:00 06/13/19 11:02 Pepcid IV 20 mg BID [facility] Administration Heparin Sodium (Porcine) 5,000 unit 06/12/19 06:00 06/13/19 06:12 Heparin SUB-Q 5,000 unit Q8HR [facility] Administration Morphine Sulfate 2 mg 06/12/19 03:45 06/13/19 06:12 Morphine IV 2 mg Q4H PRN Administration Pain, Moderate (4-6) Sodium Chloride 10 ml 06/12/19 10:00 06/13/19 11:02 Sodium Chloride Flush Syringe 10 Ml IV 10 ml BID [facility] Administration Sodium Chloride 10 ml 06/12/19 03:45 Sodium Chloride Flush Syringe 10 Ml IV PRN PRN LINE FLUSH Nutrition/Malnutrition Assess - Dietary Evaluation Nutrition/Malnutrition Findings: Nutrition Notes Start: 06/12/19 11:38 Freq: Status: Active Protocol: Document 06/12/19 11:38 DW (Rec: 06/12/19 11:44 DW [id number]) Co-Sign 06/12/19 11:38 LP Nutrition Notes Need for Assessment generated from: MD Order,Education Initial or Follow up Brief Note Other Pertinent Diagnosis obesity, drug overdose Current Diet NPO Labs/Tests Glu 278 BUN 23 Pertinent Medications Reviewed Height 5 ft 1 in Weight 84.9 kg [place] Body Weight (kg) 47.72 BMI 35.4 Subjective/Other Information MD consult for Education Pt still on vent upon arrival Nutrition Intervention Follow-Up By: 06/13/19 Additional Comments FU assessment/education
--- NOTE | 2019-06-13 13:12 | Progress Note ---
Assessment and Plan Acute hypoxic respiratory failure on MVS Intentional OD Hypotension at presentation, now hypertensive Obese - supportive care - Adjust 1013 per Psych & attending - Blood pressure managmeent - PT/OT to evalaute and treat - VTE prophylaxxis - Stress ulcer prophylaxis - prn blood test's CONDITION: IMPROVED PROGNOSIS: IMPROVED CODE STATUS: FULL CODE Subjective Date of service: 06/13/19 Principal diagnosis: Ac. Hypoxemic Resp failure s/p MVS; Intentional Drug OD; HTN; Obesity Interval history: Patient is seen today for: Ac. Hypoxemic Resp failure s/p MVS; Intentional Drug OD; HTN; Obesity Seen and examined at bedside; 24hour events reviewed; nursing and respiratory care staff consulted; no adverse overnight events reported to me; resting peacefully in bed; feels better; denies acute chest pains or palpitations; no suicidal ideations Objective Vital Signs - 12hr 06/13/19 06/13/19 06/13/19 01:35 05:59 06:12 Temperature 97.5 F L Pulse Rate 84 Respiratory 20 20 20 Rate Blood Pressure 94/63 O2 Sat by Pulse 95 Oximetry 06/13/19 06/13/19 06/13/19 06:42 08:48 10:00 Temperature 98.7 F Pulse Rate 79 Respiratory 20 24 Rate Blood Pressure 97/66 O2 Sat by Pulse 97 94 Oximetry 06/13/19 11:36 Temperature 97.8 F Pulse Rate 89 Respiratory 24 Rate Blood Pressure 113/66 O2 Sat by Pulse 93 Oximetry Constitutional: no acute distress, other Eyes: non-icteric ENT: oropharynx moist Neck: supple, no lymphadenopathy Effort: mildly labored Ascultation: Bilateral: clear Percussion: Bilateral: not dull Cardiovascular: regular rate and rhythm Gastrointestinal: normoactive bowel sounds, soft, non-tender, non-distended Integumentary: normal Extremities: no cyanosis, pulses normal, no ischemia or petechiae Neurologic: normal mental status, non-focal exam, pupils equal and round, CN II- XII normal Psychiatric: mood appropriate, affect normal CBC and BMP: 06/13/19 06:49 06/13/19 06:49 ABG, PT/INR, D-dimer: ABG POC ABG pH 7.368 (7.35-7.45) 06/12/19 05:09 POC ABG pCO2 41.0 (35-45) 06/12/19 05:09 POC ABG pO2 66 (80-105) L 06/12/19 05:09 POC ABG HCO3 23.6 (22-26 mml/L) 06/12/19 05:09 POC ABG Total CO2 25 (23-27mmol/L) 06/12/19 05:09 POC ABG O2 Sat 92 06/12/19 05:09 PT/INR, D-dimer PT 14.2 Sec. (12.2-14.9) 06/13/19 06:49 INR 1.09 (0.87-1.13) 06/13/19 06:49 Abnormal lab findings: Abnormal Labs 06/11/19 06/11/19 06/11/19 23:36 23:36 23:36 Lymph % (Auto) 46.0 H [place] % (Auto) 7.6 H POC ABG pH POC ABG pO2 Sodium Carbon Dioxide 19 L BUN 23 H Creatinine Glucose 278 H Calcium 7.9 L Total Protein 5.5 L Albumin 3.5 L Salicylates Acetaminophen Plasma/Serum Alcohol 06/11/19 06/11/19 06/11/19 23:36 23:36 23:36 Lymph % (Auto) [place] % (Auto) POC ABG pH POC ABG pO2 Sodium Carbon Dioxide BUN Creatinine Glucose Calcium Total Protein Albumin Salicylates < 0.3 L Acetaminophen < 5.0 L Plasma/Serum Alcohol 0.12 H 06/12/19 06/12/19 06/13/19 00:00 05:09 06:49 Lymph % (Auto) 43.1 H [place] % (Auto) POC ABG pH 7.273 L POC ABG pO2 141 H 66 L Sodium Carbon Dioxide BUN Creatinine Glucose Calcium Total Protein Albumin Salicylates Acetaminophen Plasma/Serum Alcohol 06/13/19 06:49 Lymph % (Auto) [place] % (Auto) POC ABG pH POC ABG pO2 Sodium 136 L Carbon Dioxide BUN Creatinine 0.4 L D Glucose 150 H Calcium Total Protein Albumin Salicylates Acetaminophen Plasma/Serum Alcohol Allied health notes reviewed: nursing
[2019-06-13 18:13] VITALS: BP 104/70
== END 2019-06-13 20:00 | disposition home or self-care (01) | DRG 917 ==
LOC: ED 22:43 → EEVIPCON 06-12 03:45 → CC1 06-12 03:45 → 3A 06-12 17:27
PROVIDERS: ADMIT Internal Medicine Geriatric Medicine; ATTEND Hospitalist
PROC: 5A1935Z Respiratory Ventilation, Less than 24 Consecutive Hours (ICD-10-PCS; 2019-06-11)
PROC: 06HY33Z Insertion of Infusion Device into Lower Vein, Percutaneous Approach (ICD-10-PCS; 2019-06-11)
PROC: 0BH17EZ Insertion of Endotracheal Airway into Trachea, Via Natural or Artificial Opening (ICD-10-PCS; 2019-06-11)
PROC: 4A033R1 Measurement of Arterial Saturation, Peripheral, Percutaneous Approach (ICD-10-PCS; principal; 2019-06-12)
DX: T42.8X2A Poisoning by antiparkinsonism drugs and other central muscle-tone depressants, intentional self-harm, initial encounter (principal); J96.01 Acute respiratory failure with hypoxia; T48.1X2A Poisoning by skeletal muscle relaxants [neuromuscular blocking agents], intentional self-harm, initial encounter; E66.9 Obesity, unspecified; I10 Essential (primary) hypertension; F43.10 Post-traumatic stress disorder, unspecified; I95.9 Hypotension, unspecified; F60.3 Borderline personality disorder; F43.25 Adjustment disorder with mixed disturbance of emotions and conduct; Z68.35 Body mass index [BMI] 35.0-35.9, adult; Z88.1 Allergy status to other antibiotic agents; Z79.899 Other long term (current) drug therapy; Y92.89 Other specified places as the place of occurrence of the external cause
CPT/HCPCS: 31500; 36415; 70450; 71045; 80048; 80076; 80307; 80320; 81001; 81025; 82803; 84484; 85025; 85610; 85730; 87070; 87205; 93005; 93010; 94002; 94003; 94760; 96374; 99406; G0378; G0480; J0330; J1644; J2270; J2310; J2704; J7030

== ENCOUNTER 2019-06-19 08:19 | Emergency (ER) | payer SELFPAY ==
[2019-06-19 08:36] VITALS: BP 148/91
--- NOTE | 2019-06-19 11:24 | Emergency Department Report ---
Chief Complaint: Medical Clearance Stated Complaint: FOLLOW UP/MEDS/SOCIAL WORK Time Seen by Provider: 06/19/19 08:57 - HPI History of Present Illness: Patient is a 44-year-old female who is presenting asking for medication refill. Patient was here one week ago after a suicide attempt. Patient became hypoxic and was intubated. After extubation and the patient was seen by psychiatry and the patient was taken off of 1013 given outpatient resources however before the patient's prescriptions will be given to the patient the patient left AMA. Patient states she had to leave secondary to some housing issue. Patient is back today stating that she needs her medications. - ROS Review of Systems: All other systems are reviewed and are negative - Exam Vital Signs: Vital Signs 06/19/19 08:34 Temperature 98.6 F Pulse Rate 87 Respiratory 18 Rate Blood Pressure 148/91 O2 Sat by Pulse 96 Oximetry Physical Exam: Patient is alert and oriented 3 is not expressing any homicidal suicidal ideations. Patient states she is not having any visual auditory hallucinations and is not responding to internal stimuli. Patient does have some anxiousness. Patient's lungs are clear to auscultation her heart tones are within normal limits her abdomen is soft and nontender. MSE screening note: Focused history and physical exam performed. Due to findings the following was ordered: ED Medical Decision Making - Medical Decision Making Social work was consult is to see the patient is anywhere her prescriptions would be cheapest. Dr. Bernal with psychiatry states that he does remember the patient and was willing to call in her prescriptions that were to be given to her last week. Patient also is on lisinopril and prednisone and those medications will be given to her as well. Patient does not have a acute life- threatening emergency at this time and can follow up with community resources. ED Disposition for MSE Clinical Impression: Medication refill Disposition: Z-07 MED SCREENING EXAM-LEFT Is pt being admited?: No Does the pt Need Aspirin: No Condition: Stable Additional Instructions: The psychiatrist Dr. Bernal has called and your medications for her mental health Referrals: PRIMARY CARE, [Primary Care Provider] - 3-5 Days Time of Disposition: 11:23
== END 2019-06-19 11:24 | disposition left against medical advice (07) ==
LOC: ED 08:19
DX: I10 Essential (primary) hypertension (principal); E11.9 Type 2 diabetes mellitus without complications; Z76.0 Encounter for issue of repeat prescription; Z88.1 Allergy status to other antibiotic agents
CPT/HCPCS: 99281